=== PATIENT | female | born 1970 | race Caucasian/White ===

== ENCOUNTER → 2016-09-04 | Outpatient (CLI) | payer SELFPAY ==
--- NOTE | 2016-09-10 07:00 | USB ---
Reason for exam: additional evaluation requested from abnormal screening. History: Patient is postmenopausal. Took hormonal contraceptives. US Breast Limited RT Right breast ultrasound indicates no cystic or solid lesion seen. These results were verbally communicated with the patient and result sheet given to the patient on 09/04/16. ASSESSMENT: Negative, BI-RAD 1 RECOMMENDATION: Routine screening mammogram of both breasts in 1 year. Manage patient on a clinical basis.
--- NOTE | 2016-09-10 07:00 | MM ---
Reason for exam: clinical finding. History: Patient is postmenopausal. Took hormonal contraceptives. Indicated problem(s): palpable abnormality in the right breast. Physical Findings: Nurse Summary: Findings indicate a 0.5cm nodule in right breast in the 6 o'clock position (nurse kp). MG 3D Diag Mammo W/Cad JACKELYN Bilateral CC and MLO view(s) were taken. LM view(s) were taken of the right breast. Prior study comparison: March 19, 2011, mammogram, performed at [facility]. July 30, 2008, mammogram, performed at [facility]. The breast tissue is heterogeneously dense. This may lower the sensitivity of mammography. There are no suspicious calcifications. There is no discrete abnormality, including area of concern subareolar 6 o'clock. No significant new findings when compared with previous films. These results were verbally communicated with the patient and result sheet given to the patient on 09/04/16. ASSESSMENT: Incomplete: need additional imaging evaluation, BI-RAD 0 RECOMMENDATION: Ultrasound of the right breast. Manage patient on a clinical basis.
== END | disposition home or self-care (01) ==
LOC: RADMAMWWP 10:12
PROVIDERS: ATTEND Radiology Diagnostic Radiology
DX: N63 Unspecified lump in breast (principal); R92.8 Other abnormal and inconclusive findings on diagnostic imaging of breast
CPT/HCPCS: 76642; G0204; G0279